=== PATIENT | female | born 2000 ===

== ENCOUNTER 2019-03-25 19:28 | Emergency (ER) | payer OTHER ==
[~2019-03-25] VITALS: Ht 157.5 cm; Wt 59.0 kg
[2019-03-25] MEDS ORDERED: PRENA1 TRUE CO1 EACH (19:37)
[2019-03-25] MEDS ORDERED: DUI500 PO (23:44)
== END 2019-03-25 23:51 | disposition home or self-care (01) ==
LOC: ER 19:28
DX: O23.41 Unspecified infection of urinary tract in pregnancy, first trimester (principal); Z34.01 Encounter for supervision of normal first pregnancy, first trimester

== ENCOUNTER 2019-09-25 03:04 | Inpatient (IN) | payer OTHER ==
[~2019-09-25] VITALS: Ht 157.5 cm; Wt 77.1 kg
[~2019-09-25 03:04] MED LIST: DUI500 PO; PRENA1 TRUE CO1 EACH
== END 2019-09-27 10:43 | disposition home or self-care (01) | DRG 807 ==
LOC: LDR 03:04 → OB/GYN 16:52
PROVIDERS: ADMIT Obstetrics & Gynecology; ATTEND Obstetrics & Gynecology
PROC: 10E0XZZ Delivery of Products of Conception, External Approach (ICD-10-PCS; principal; 2019-09-25)
PROC: 0KQM0ZZ Repair Perineum Muscle, Open Approach (ICD-10-PCS; 2019-09-25)
PROC: 10907ZC Drainage of Amniotic Fluid, Therapeutic from Products of Conception, Via Natural or Artificial Opening (ICD-10-PCS; 2019-09-25)
PROC: 3E033VJ Introduction of Other Hormone into Peripheral Vein, Percutaneous Approach (ICD-10-PCS; 2019-09-25)
PROC: 4A1HXCZ Monitoring of Products of Conception, Cardiac Rate, External Approach (ICD-10-PCS; 2019-09-25)
DX: O70.1 Second degree perineal laceration during delivery (principal); Z37.0 Single live birth; O99.820 Streptococcus B carrier state complicating pregnancy; Z3A.39 39 weeks gestation of pregnancy; Z20.828 Contact with and (suspected) exposure to other viral communicable diseases

== ENCOUNTER 2023-03-24 14:29 | Outpatient (CLI) | payer OTHER | END 2023-03-24 14:32 | disposition home or self-care (01) | LOC: PRENATAL 14:29 | PROVIDERS: ATTEND Obstetrics & Gynecology Maternal & Fetal Medicine | DX: O35.3XX0 Maternal care for (suspected) damage to fetus from viral disease in mother, not applicable or unspecified (principal); O44.00 Complete placenta previa NOS or without hemorrhage, unspecified trimester; Z3A.20 20 weeks gestation of pregnancy ==

== ENCOUNTER 2023-05-19 13:41 | Outpatient (CLI) | payer OTHER ==
[~2023-05-19 13:41] MED LIST changes: +PRENA1 TRUE CO1 EACH PO
== END 2023-05-19 13:42 | disposition home or self-care (01) ==
LOC: PRENATAL 13:41
PROVIDERS: ATTEND Obstetrics & Gynecology Maternal & Fetal Medicine
DX: O26.849 Uterine size-date discrepancy, unspecified trimester (principal); O44.00 Complete placenta previa NOS or without hemorrhage, unspecified trimester; Z3A.28 28 weeks gestation of pregnancy